=== PATIENT | female | born 1940 | race Caucasian/White ===

== ENCOUNTER 2018-03-16 12:21 | Emergency (ER) | payer OTHER ==
[~2018-03-16] VITALS: Ht 170.2 cm; Wt 97.5 kg
[2018-03-16] MEDS ORDERED: HYDROCHLOROTHIA25 M2 PO (12:53)
[2018-03-16] MEDS ORDERED: SYNTHROID75 MCG PO (12:53)
[2018-03-16] MEDS ORDERED: CRESTOR5 MG PO (12:54)
[2018-03-16] MEDS ORDERED: TOPROL XL100 MG PO (12:54)
[2018-03-16] MEDS ORDERED: KLOR-CON 1010 MEQ PO (12:54)
[2018-03-16] MEDS ORDERED: MOBIC15 MG PO (12:54)
[2018-03-16] MEDS ORDERED: TRAZODONE HCL50 MG PO (12:54)
[2018-03-16 12:58] LABS: URINE CLARITY SL HAZY; URINE COLOR YELLOW
[2018-03-16 12:59] LABS: ICTOTEST (BILI CONFIRMATORY) Negative (Negative); URINE BILIRUBIN NEGATIVE (Negative); URINE BLOOD NEGATIVE (Negative); URINE GLUCOSE-RANDOM* NEGATIVE (Negative); URINE KETONES 1+ (Negative); URINE LEUKOCYTES-REFLEX NEGATIVE (Negative); URINE NITRITE-REFLEX NEGATIVE (Negative); URINE PROTEIN (DIPSTICK) TRACE (Negative); URINE SPECIFIC GRAVITY >= 1.030 (1.005-1.035); URINE UROBILINOGEN 0.2 E.U./dl (0.2-1.0)
[2018-03-16 13:12] LABS: HEMATOCRIT 43.7 % (37.0-47.0); HEMOGLOBIN 14.7 gm/dL (12.0-15.0); MCHC 33.5 g/dL (28.0-37.0); MCV 89.5 fL (80.0-100.0); PLATELET COUNT 269 thou/uL (150-400); RBC 4.89 mil/uL (4.20-5.00); RDW 14.5 % (10.5-14.5); WBC 6.2 thou/uL (4.0-11.0)
[2018-03-16 13:20] LABS: CALCIUM 9.2 mg/dL (8.5-10.1); CREATININE 1.9 mg/dL (0.6-1.0)
[2018-03-16 13:33] LABS: ALBUMIN 3.8 g/dL (3.4-5.0)
[2018-03-16 13:34] LABS: TOTAL BILIRUBIN 0.7 mg/dL (<0.1-1.0); TOTAL PROTEIN 8.1 g/dL (6.4-8.2)
[2018-03-16 13:35] LABS: POTASSIUM 2.9 mmol/L (3.5-5.1)
[2018-03-16 13:49] LABS: ABSOLUTE NEUTROPHILS 3.6 thou/uL (1.4-8.2)
[2018-03-16] MEDS ORDERED: ZOFRAN ODT4 MG PO (14:52)
[2018-03-16] MEDS ORDERED: PHENERGAN 25 MG25 M1 PO (14:52)
[2018-03-16 14:59] VITALS: BP 132/89
== END 2018-03-16 15:03 | disposition home or self-care (01) ==
LOC: ER 12:21
PROVIDERS: Physician Assistant
DX: E87.6 Hypokalemia (principal); N17.9 Acute kidney failure, unspecified; R11.2 Nausea with vomiting, unspecified; R19.7 Diarrhea, unspecified; I10 Essential (primary) hypertension

== ENCOUNTER → 2019-01-19 | Outpatient (CLI) | payer OTHER ==
[~2019-01-19] MED LIST: CRESTOR5 MG PO; HYDROCHLOROTHIA25 M2 PO; KLOR-CON 1010 MEQ PO; MOBIC15 MG PO; PHENERGAN 25 MG25 M1 PO; SYNTHROID75 MCG PO; TOPROL XL100 MG PO; TRAZODONE HCL50 MG PO; ZOFRAN ODT4 MG PO
== END ==
LOC: CAT 09:06
DX: Z13.6 Encounter for screening for cardiovascular disorders (principal); E78.00 Pure hypercholesterolemia, unspecified; I25.10 Atherosclerotic heart disease of native coronary artery without angina pectoris

== ENCOUNTER → 2019-05-06 | Outpatient (CLI) | payer OTHER | LOC: SJCVC 09:44 | DX: E78.5 Hyperlipidemia, unspecified (principal); E78.00 Pure hypercholesterolemia, unspecified; E03.9 Hypothyroidism, unspecified; I10 Essential (primary) hypertension ==

== ENCOUNTER → 2019-06-02 | Outpatient (CLI) | payer OTHER | LOC: SJCVCIMAG 10:49 | DX: I07.1 Rheumatic tricuspid insufficiency (principal); I25.10 Atherosclerotic heart disease of native coronary artery without angina pectoris; I10 Essential (primary) hypertension; E78.2 Mixed hyperlipidemia; E03.9 Hypothyroidism, unspecified; F41.9 Anxiety disorder, unspecified; Z87.891 Personal history of nicotine dependence; Z85.3 Personal history of malignant neoplasm of breast; Z72.89 Other problems related to lifestyle; Z79.82 Long term (current) use of aspirin; Z79.899 Other long term (current) drug therapy; Z88.8 Allergy status to other drugs, medicaments and biological substances ==

== ENCOUNTER → 2019-08-25 | Outpatient (CLI) | payer OTHER | LOC: SJCVC 08:54 | PROVIDERS: ATTEND Internal Medicine | DX: E78.5 Hyperlipidemia, unspecified (principal) ==

== ENCOUNTER → 2021-01-05 | Outpatient (CLI) | payer OTHER | LOC: SJCVCIMAG 08:23 | PROVIDERS: ATTEND Internal Medicine | DX: R00.0 Tachycardia, unspecified (principal); E78.5 Hyperlipidemia, unspecified; Z87.891 Personal history of nicotine dependence ==